=== PATIENT | male | born 1990 | race African-American/Black ===

== ENCOUNTER 2016-10-27 12:59 | Emergency (ER) | payer SELFPAY ==
[~2016-10-27] VITALS: Ht 170.2 cm; Wt 66.0 kg
[~2016-10-27 12:59] MED LIST: PERM5CRE TOP
[2016-10-27 13:01] VITALS: BP 134/88; PULSE 110; RESP 20; TEMP 98.9; O2SAT 95
--- NOTE | 2016-10-27 13:24 | PD ---
HPI Chief Complaint: Laceration/Skin Injury Time Seen by Provider: 13:18 Travel History International Travel<30 days: No Contact w/Intl Traveler<30days: No Traveled to known affect area: No History of Present Illness HPI 26-year-old male percents emergency department for evaluation of laceration to right lower cavity. Patient reports this morning he rolled off the couch hitting a glass cup on a side table which broke causing 3 lacerations to the lower extremity. The bleeding is well-controlled. Tetanus immunization is up- to-date. He denies numbness/tingling/weakness in the lower extremity. He reports pain at the site of laceration, constant, symptoms severity mild, no alleviating factors. PFSH Past Medical History Medical History: Denies Significant Hx Diminished Hearing: No Immune Disorder: Yes (HIV) Tetanus Vaccination: < 5 Years Social History Alcohol Use: Yes (Ocassionally) Tobacco Use: Yes (2-3 cigs daily) Substance Use: Yes (marijuana ) Allergies-Medications (Allergen,Severity, Reaction): Coded Allergies: No Known Allergies (Unverified , 10/27/16) Reported Meds & Prescriptions Reported Meds & Active Scripts Active Reported Atripla (Rsccexary-Otdkgpdzyoxuz-Omztbzgnv) 600-200-300 Mg Tab 1 Tab PO HS Take on an empty stomach. Review of Systems Except as stated in HPI: all other systems reviewed are Neg Physical Exam Narrative GENERAL: Well-nourished, well-developed patient. SKIN: Focused skin assessment warm/dry. HEAD: Normocephalic. EYES: No scleral icterus. No injection or drainage. NECK: Supple, trachea midline. No JVD or lymphadenopathy. CARDIOVASCULAR: Regular rate and rhythm without murmurs, gallops, or rubs. RESPIRATORY: Breath sounds equal bilaterally. No accessory muscle use. GASTROINTESTINAL: Abdomen soft, non-tender, nondistended. MUSCULOSKELETAL: No cyanosis, or edema. Right lower extremity 3 superficial lacerations to the anterior/medial aspect measuring between 1 and 5 tenderness. No foreign body visualized. No tendon or vascular injury. The extremity is neurovascular intact. 2+ distal pulses. BACK: Nontender without obvious deformity. No CVA tenderness. Data Data Last Documented VS Vital Signs Date Time Temp Pulse Resp B/P Pulse Ox O2 Delivery O2 Flow Rate FiO2 10/27/16 13:01 98.9 110 20 134/88 95 Room Air Orders Tibia/Fibula (Ap/Lat) (10/27/16 ) MDM Medical Decision Making Medical Screen Exam Complete: Yes Emergency Medical Condition: Yes Differential Diagnosis Laceration, rule out retained foreign body, abrasion Narrative Course 26-year-old male presents emergency to department for evaluation of 3 superficial lacerations to the right lower extremity. Patient reports he injured the leg when he rolled over on the couch striking a cup broke cutting the leg. X-ray obtained to rule out foreign body. Tetanus status up-to-date. Wounds sutured closed. Wound Care discussed. Patient verbalizes understanding and agrees to plan Procedures Procedure Narrative LACERATION LOCATION: Right lower extremity LENGTH: #1 5 cm, #2 3 cm, #31 cm NUMBER OF STITCHES/EVER: 11 total REPAIR: The area of the laceration was prepped with Betadine and sterilely draped. The laceration was infiltrated with 1% lidocaine with epi. The wound was copiously irrigated and explored without evidence of foreign body, tendon injury or neurovascular injury. The wound was closed using 4-0 Ethilon. This was a single layer repair. A sterile dressing was applied. The patient was advised to keep the dressing clean and dry. Patient tolerated the procedure well. Diagnosis Primary Impression: Laceration of lower extremity Qualified Code: S81.811A - Laceration of lower extremity, right, initial encounter Referrals: Primary Care Physician Additional Instructions: Do not submerge the wound in water. He may cleanse the area and change the dressing daily. Sutures need to be removed in 7-10 days. Return to emergency department or follow-up the primary doctor if he developed increasing pain, redness, fever or chills. Disposition: 01 DISCHARGE HOME Condition: Stable Randa Casper Oct 27, 2016 13:24
--- NOTE | 2016-10-27 13:47 | RADRPT ---
EXAM DATE/TIME: 10/27/2016 13:35 [facility] COMPARISON: No previous studies available for comparison. INDICATIONS : Pain and laceration right distal tibia MEDICAL HISTORY : None. SURGICAL HISTORY : None. ENCOUNTER: Initial ACUITY: 1 day PAIN SCORE: 3/10 LOCATION: Right Tibia FINDINGS: Two view examination of the right tibia demonstrates no evidence of fracture or dislocation. Bony mi neralization is normal. The soft tissue structures are intact. CONCLUSION: Laceration without radiopaque foreign body. Bandar Bradford MD FACR on October 27, 2016 at 13:45 Board Certified Radiologist. This report was verified electronically.
[2016-10-27] MEDS ORDERED: ATRITAB PO (14:52)
== END 2016-10-27 15:11 | disposition home or self-care (01) ==
LOC: NEPD 12:59
DX: S81.811A Laceration without foreign body, right lower leg, initial encounter (principal); F17.210 Nicotine dependence, cigarettes, uncomplicated; W08.XXXA Fall from other furniture, initial encounter
CPT/HCPCS: 12004; 73590

== ENCOUNTER 2016-11-09 13:09 | Emergency (ER) | payer OTHER ==
[~2016-11-09] VITALS: Ht 170.2 cm; Wt 65.9 kg
[~2016-11-09 13:09] MED LIST changes: +ATRITAB PO; -PERM5CRE TOP
[2016-11-09 13:12] VITALS: BP 115/72; PULSE 68; RESP 16; TEMP 98; O2SAT 99
--- NOTE | 2016-11-09 14:19 | PD ---
HPI Chief Complaint: Wound/Suture/Staple Re-Check Time Seen by Provider: 13:47 Travel History International Travel<30 days: No Contact w/Intl Traveler<30days: No Traveled to known affect area: No History of Present Illness HPI This is a 26-year-old male who 2 weeks ago fell on a glass and sustained a laceration. He had sutures placed. He returns today for suture removal. He's had no redness or warmth of his wounds and he is healing well. [facility] Past Medical History Diminished Hearing: No Immune Disorder: Yes (HIV) Past Surgical History Surgical History: No Previous Surgery Social History Alcohol Use: Yes (Ocassionally) Tobacco Use: Yes (2-3 cigs daily) Substance Use: Yes (marijuana ) Allergies-Medications (Allergen,Severity, Reaction): Coded Allergies: No Known Allergies (Unverified , 11/09/16) Reported Meds & Prescriptions Reported Meds & Active Scripts Active Reported Atripla (Cnqwkycvz-Ataultstbubor-Nqoggcuqw) 600-200-300 Mg Tab 1 Tab PO HS Take on an empty stomach. Review of Systems Except as stated in HPI: all other systems reviewed are Neg Physical Exam Narrative GENERAL: Well-appearing, no acute distress, nontoxic SKIN: 3 well-healing lacerations on the left lower extremity. HEAD: Atraumatic. Normocephalic. ENT: No nasal bleeding or discharge. Moist mucous membranes MUSCULOSKELETAL: No obvious deformities. No clubbing. No cyanosis. No edema. NEUROLOGICAL: Awake and alert. Moving all extremities. PSYCHIATRIC: Appropriate mood and affect; insight and judgment normal. Data Data Last Documented VS Vital Signs Date Time Temp Pulse Resp B/P Pulse Ox O2 Delivery O2 Flow Rate FiO2 11/09/16 13:48 18 11/09/16 13:12 98.0 68 115/72 99 Room Air MDM Medical Decision Making Medical Screen Exam Complete: Yes Emergency Medical Condition: Yes Interpretation(s) Afebrile, no tachycardia, normotensive Differential Diagnosis Laceration, wound infection Narrative Course This is a 26-year-old male who presents to the emergency department for suture removal. 11 sutures were removed. He has no signs of infection. He was discharged home. Diagnosis Primary Impression: Visit for suture removal Patient Instructions: General Instructions Med/Other Pt SpecificInfo: No Change to Meds Disposition: 01 DISCHARGE HOME Condition: Stable Highet,Clara H. MD Nov 09, 2016 14:19
== END 2016-11-09 14:42 | disposition home or self-care (01) ==
LOC: NEPD 13:09
DX: Z48.02 Encounter for removal of sutures (principal); Z21 Asymptomatic human immunodeficiency virus [HIV] infection status; F17.210 Nicotine dependence, cigarettes, uncomplicated; Z79.899 Other long term (current) drug therapy
CPT/HCPCS: 99281